=== PATIENT | female | born 1970 | race Caucasian/White ===

== ENCOUNTER → 2016-08-23 | Outpatient (CLI) | payer OTHER ==
[~2016-08-23] MED LIST: ABILIFY10 MG PO; ASPIRIN EC81 M1 PO; BACLOFEN10 MG PO; DESYREL150 M1 PO; DULERA 200 MCG/13 GM INH; FLOVENT DISKUS50 MCG; HYDROXYZINE PAM25 M1 PO; IMITREX20 MG PO; K-DUR10 MEQ PO; LASIX20 MG PO; MONTELUKAST SOD10 MG PO; OMEPRAZOLE20 M2 PO; PRAVACHOL80 MG PO; ROBAXIN 750750 MG PO; SPIRIVA18 MCG INH; VOLTAREN75 MG PO; ZOLOFT50 MG PO
--- NOTE | ~2016-08-23 | XA51 ---
[facility] A Service of [facility] RADIOLOGY TEXT RESULTS PATIENT: HILARY LOPEZ LOCATION: [facility] : 74 UNIT #: [id number] AGE: [address]: Anand Ramirez MD SEX: F ORDER DR: [id number] [facility]. [place], [place] [address] [id number] O MR#: [id number] Acc #: [id number] NAME: HILARY LOPEZ : 1970 SEX: F STUDY DATE/TIME: 08/23/2016 8:28 UNIT: [facility] ROOM: STUDY DESCRIPTION: JATIN BX Bone Marrow Attending Physician: Anand Ramirez M.D. Ordering Physician: Anand Ramirez M.D. Primary Care Physician: Generic Doctor Not In System MEDICAL IMAGING REPORT This report is preliminary unless electronic signature is present EXAM Fluoroscopically guided bone marrow aspiration biopsy DATE 08/23/2016 COMPARISON None. HISTORY Elevated white blood count and thrombocytopenia. PROCEDURE Informed consent was obtained from the patient. A skin site was selected with fluoroscopic guidance and marked, sterilely prepped and draped and locally anesthetized. Fentanyl and Versed were administered for IV conscious sedation with hemodynamic monitoring provided by the nursing staff throughout the procedure. Total sedation time 15 minutes. Using 1.5 minutes of fluoroscopy and a single spot image, core specimen was obtained from the right posterior ilium with fluoroscopic guidance following cutaneous and periosteal anesthesia. Core biopsy and aspirate were obtained. There are no complications and the patient tolerated the procedure well. IMPRESSION Successful fluoroscopically guided bone marrow aspiration core biopsy from the right posterior ilium without complication, conscious sedation as above. Dictated by... Joaquim Mcnamara M.D. [facility] A Service [facility] RADIOLOGY TEXT RESULTS PATIENT: HILARY LOPEZ LOCATION: [facility] : 74 UNIT #: [id number] AGE: [address]: Anand Ramirez MD SEX: F ORDER DR: THIS IS AN ELECTRONICALLY VERIFIED REPORT Joaquim Mcnamara M.D. at 08/27/2016 10:34 AM ANGUS/clari TD: 08/24/2016 11:29 JOB #: [id number] MEDICAL IMAGING REPORT Page 1 of 1 COPY
[2016-08-23 07:11] LABS: HEMATOCRIT 39.9 % (35.0-45.0); HEMOGLOBIN 13.2 gm/dL (12.0-16.0); MEAN CELL VOLUME 88.5 FL (83-96); MEAN CORPUSCULAR HEMOGLOBIN 29.2 PG (28-34); MEAN PLATELET VOLUME 7.4 FL (6.5-11.5); RED BLOOD COUNT 4.51 X10e (3.90-5.30); RED CELL DISTRIBUTION WIDTH 14.5 % (11.0-15.5); WHITE BLOOD COUNT 13.2 X10e3 (4.0-10.5)
[2016-08-23 07:26] LABS: INR 0.9; PROTHROMBIN TIME (PATIENT) 9.6 SECONDS (9.6-11.5)
== END | disposition home or self-care (01) ==
LOC: CIVR 06:35
PROVIDERS: Internal Medicine Hematology
DX: D72.829 Elevated white blood cell count, unspecified (principal); D47.3 Essential (hemorrhagic) thrombocythemia; J44.9 Chronic obstructive pulmonary disease, unspecified; F17.210 Nicotine dependence, cigarettes, uncomplicated; Z88.2 Allergy status to sulfonamides
CPT/HCPCS: 38221; G0364; 36415; 77002; 85027; 85610; 85730; 88305; 88311; 88313; 99144; 99152; 99153; J2250; J3010